=== PATIENT | male | born 1980 | race Two or more races ===

== ENCOUNTER 2020-12-21 05:27 | Emergency (ER) | payer SELFPAY ==
[~2020-12-21] VITALS: Ht 172.7 cm; Wt 105.6 kg
[2020-12-21] MEDS ORDERED: ONDANSETRON ODT 4 MG TAB.RAPDIS. PO PRN (06:00)
[2020-12-21] MEDS ORDERED: KETOROLAC 15 MG/ML VIAL. IM PRN (06:00)
--- NOTE | 2020-12-21 06:04 | PHYS DOC ---
General Adult EDM: Chief Complaint: ABDOMINAL PAIN HPI: HPI: Patient is a 40 year old male without pertinent past medical history who presents with 2-3 days of left-sided colicky flank pain. Radiates to the groin. Associated with nausea and vomiting. At worst pain was 8/10 just prior to arrival. He is now feeling better. Nausea has improved as well. No diarrhea or stool changes. No dysuria. Has noticed dark urine. No history of renal stones. No history of abdominal surgeries. (BOUCHRA GARRETT MD) Review of Systems: Review of Systems: Constitutional: Denies fever or chills. [] Eyes: Denies change in visual acuity. [] HENT: Denies nasal congestion or sore throat. [] Respiratory: Denies cough or shortness of breath. [] Cardiovascular: Denies chest pain or edema. [] GI: Denies abdominal pain, nausea, vomiting, bloody stools or diarrhea. [] : Reports dark urine and left-sided flank pain radiating to his groin [] Musculoskeletal: Denies back pain or joint pain. [] Integument: Denies rash. [] Neurologic: Denies headache, focal weakness or sensory changes. [] Endocrine: Denies polyuria or polydipsia. [] Lymphatic: Denies swollen glands. [] Psychiatric: Denies depression or anxiety. [] (BOUCHRA GARRETT MD) Heart Score: C/O Chest Pain: No Risk Factors: Risk Factors: DM, Current or recent (<one month) smoker, HTN, HLP, family history of CAD, obesity. Risk Scores: Score 0 - 3: 2.5% MACE over next 6 weeks - Discharge Home Score 4 - 6: 20.3% MACE over next 6 weeks - Admit for Clinical Observation Score 7 - 10: 72.7% MACE over next 6 weeks - Early Invasive Strategies (BOUCHRA GARRETT MD) C/O Chest Pain: No (VERITO KRUEGER MD) Physical Exam: PE: Constitutional: Well developed, well nourished, no acute distress, non-toxic appearance. [] HENT: Normocephalic, atraumatic, bilateral external ears normal, oropharynx moist, no oral exudates, nose normal. [] Eyes: PERRLA, EOMI, conjunctiva normal, no discharge. [] Neck: Normal range of motion, no tenderness, supple, no stridor. [] Cardiovascular:Heart rate regular rhythm, no murmur [] Lungs & Thorax: Bilateral breath sounds clear to auscultation [] Abdomen: Soft, nondistended, nonrigid. No appreciable tenderness. Skin: Warm, dry, no erythema, no rash. [] Back: Mild left-sided CVA tenderness. Extremities: No tenderness, no cyanosis, no clubbing, ROM intact, no edema. [] Neurologic: Alert and oriented X 3, normal motor function, normal sensory function, no focal deficits noted. [] Psychologic: Affect normal, judgement normal, mood normal. [] (BOUCHRA GARRETT MD) EKG: EKG: [] (BOUCHRA GARRETT MD) Radiology/Procedures: Radiology/Procedures: [] (BOUCHRA GARRETT MD) Radiology/Procedures: [facility] [address] [place] [address] IMAGING REPORT Signed PATIENT: SELINA MONTANEZ ACCOUNT: [id number] : 1980 LOCATION: ER AGE: 40 SEX: M EXAM STATUS: REG ER ORD. PHYSICIAN: BOUCHRA GARRETT MD REASON: LEFT FLANK PAIN PROCEDURE: CT ABDOMEN PELVIS WO CONTRAST EXAM: CT Abdomen and Pelvis without IV contrast CLINICAL HISTORY: LEFT FLANK PAIN COMPARISON: none TECHNIQUE: Helical CT of the abdomen and pelvis without intravenous contrast. Axial, coronal and sagittal reformatted images were generated. PQRS compliance statement - One or more of the following individualized dose reduction techniques were utilized for this study: 1. Automated exposure control 2. Adjustment of the mA and/or kV according to patient size 3. Use of iterative reconstruction technique FINDINGS: Lack of intravenous contrast limits evaluation of solid organs, vasculature, and lymph nodes. Lower chest: Lung bases are clear. Abdomen and Pelvis: Subcentimeter hypodense hepatic lesion too small to accurately characterize. Liver is enlarged. Gallbladder is normal. No biliary ductal dilatation. Pancreas and spleen are unremarkable. Adrenal glands are normal in appearance. There is trace infiltration about the left kidney. There is mild left hydronephrosis and proximal left hydroureter to the level of a 4 mm calculus in the proximal left ureter. Indeterminate 2.2 x 1.4 cm low-density lesion at the inferior pole the left kidney, exophytic. Bladder thickening. No right renal tract calculus or right renal lesion. No right hydronephrosis or hydroureter. Prostate measures 6 cm in transverse dimension. Appendix is normal. Moderate colonic stool content is seen. No small or large bowel dilatation. Colonic diverticulosis without CT evidence for acute diverticulitis. Fat-containing inguinal hernias bilaterally. Bones: No aggressive osseous lesion is seen. Degenerative changes of the spine are seen. IMPRESSION: 1. 4 mm calculus is seen within the proximal left ureter with resultant mild left hydronephrosis and hydroureter. 2. Diffuse bladder wall thickening may be seen with cystitis. 3. Exophytic 2.2 cm low-density lesion at the inferior pole the left kidney can be further assessed by nonemergent ultrasound. 4. Hepatomegaly. Electronically signed by: Javy Vasquez MD (12/21/2020 6:34 AM) [facility] DICTATED and SIGNED BY: JAVY VASQUEZ MD DATE: 12/21/20 [id number] (VERITO KRUEGER MD) Course & Med Decision Making: Course & Med Decision Making Pertinent Labs and Imaging studies reviewed. (See chart for details) Patient is a 40-year-old male without pertinent past medical history who is presenting with colicky left-sided flank pain radiating to his groin and dark urine. Most concern for renal colic. No history of same. Have ordered UA, BMP, CBC, CT abdomen/pelvis WO contrast for initial evaluation. I have signed out this patient to my oncoming colleague at change of shift at [phone] (BOUCHRA GARRETT MD) Course & Med Decision Making Accepted patient care at shift change. Pain control. Patient resting complaint bed. Discussed kidney stone and follow-up with primary care for urology referral if stone does not pass on its own. (VERITO KRUEGER MD) Dragon Disclaimer: Dragon Disclaimer: This electronic medical record was generated, in whole or in part, using a voice recognition dictation system. (BOUCHRA GARRETT MD) Departure Departure Impression: Primary Impression: Left flank pain Additional Impression: Kidney stone on left side Disposition: HOME / SELF CARE / HOMELESS Condition: STABLE Referrals: NO PCP (PCP) Patient Instructions: Kidney Stones Scripts Ondansetron (ONDANSETRON ODT) 4 Mg Tab.rapdis 1 TAB PO PRN Q6-8HRS PRN for NAUSEA for 5 Days, #16 TAB Prov: VERITO KRUEGER MD 12/21/20 Ibuprofen (IBUPROFEN) 800 Mg Tablet 800 MG PO PRN Q8HRS PRN for INFLAMMATION for 10 Days, #30 TAB Prov: VERITO KRUEGER MD 12/21/20 Hydrocodone/Acetaminophen (Hydrocodone-Acetamin 5-325 mg) 1 Each Tablet 1 EACH PO PRN Q6-8HRS PRN for PAIN for 5 Days, #15 TAB Prov: VERITO KRUEGER MD 12/21/20 Tamsulosin Hcl (FLOMAX) 0.4 Mg Cap.er.24h 1 CAP PO DAILY for kidney stone for 10 Days, #10 CAP 0 Refills Prov: VERITO KRUEGER MD 12/21/20 BOUCHRA GARRETT MD Dec 21, 2020 06:04 VERITO KRUEGER MD Dec 21, 2020 07:13
[2020-12-21 06:14] LABS: BILIRUBIN,URINE NEGATIVE (NEG); CLARITY,URINE CLOUDY; COLOR,URINE YELLOW; NITRITE,URINE NEGATIVE (NEG); PROTEIN,URINE NEGATIVE (NEG-TRACE); UROBILINOGEN,URINE 0.2 mg/dL (0.2 mg/dL)
[2020-12-21 06:32] LABS: BACTERIA,URINE FEW /HPF (0-FEW)
--- NOTE | 2020-12-21 06:37 | RAD ---
EXAM: CT Abdomen and Pelvis without IV contrast CLINICAL HISTORY: LEFT FLANK PAIN COMPARISON: none TECHNIQUE: Helical CT of the abdomen and pelvis without intravenous contrast. Axial, coronal and sagi ttal reformatted images were generated. PQRS compliance statement - One or more of the following individualized dose reduction techniques wer e utilized for this study: 1. Automated exposure control 2. Adjustment of the mA and/or kV according to patient size 3. Use of iterative reconstruction technique FINDINGS: Lack of intravenous contrast limits evaluation of solid organs, vasculature, and lymph nodes. Lower chest: Lung bases are clear. Abdomen and Pelvis: Subcentimeter hypodense hepatic lesion too small to accurately characterize. Liver is enlarged. Gallb ladder is normal. No biliary ductal dilatation. Pancreas and spleen are unremarkable. Adrenal glands are normal in appearance. There is trace infiltration about the left kidney. There is mild left hydro nephrosis and proximal left hydroureter to the level of a 4 mm calculus in the proximal left ureter. Indeterminate 2.2 x 1.4 cm low-density lesion at the inferior pole the left kidney, exophytic. Bladde r thickening. No right renal tract calculus or right renal lesion. No right hydronephrosis or hydrour eter. Prostate measures 6 cm in transverse dimension. Appendix is normal. Moderate colonic stool content is seen. No small or large bowel dilatation. Colon ic diverticulosis without CT evidence for acute diverticulitis. Fat-containing inguinal hernias bilat erally. Bones: No aggressive osseous lesion is seen. Degenerative changes of the spine are seen. IMPRESSION: 1. 4 mm calculus is seen within the proximal left ureter with resultant mild left hydronephrosis and hydroureter. 2. Diffuse bladder wall thickening may be seen with cystitis. 3. Exophytic 2.2 cm low-density lesion at the inferior pole the left kidney can be further assessed by nonemergent ultrasound. 4. Hepatomegaly. Electronically signed by: Javy Curran MD (12/21/2020 6:34 AM) [facility]
[2020-12-21] MEDS ORDERED: IBUP-1060 PO (07:13)
[2020-12-21] MEDS ORDERED: ONDA4TAB12 PO (07:13)
[2020-12-21] MEDS ORDERED: HYDR-2759 PO (07:13)
[2020-12-21] MEDS ORDERED: TAMS0.4C97 PO (07:13)
[2020-12-21 07:20] VITALS: BP 137/81
== END 2020-12-21 07:24 | disposition home or self-care (01) ==
LOC: ER 05:27
DX: N13.2 Hydronephrosis with renal and ureteral calculous obstruction (principal); R16.0 Hepatomegaly, not elsewhere classified; R11.2 Nausea with vomiting, unspecified
CPT/HCPCS: 74176; 81001; 99284-25